=== PATIENT | male | born 1960 | race Two or more races ===

== ENCOUNTER 2024-12-26 10:31 | Emergency (ER) | payer BC, OTHER ==
[~2024-12-26] VITALS: Ht 170.2 cm; Wt 80.7 kg
[2024-12-26 10:49] VITALS: BP 122/73; PULSE 79; RESP 17; TEMP 98.1; O2SAT 98
--- NOTE | 2024-12-26 10:52 | ED.PDOC ---
Musculoskeletal HPI Comments This is a 64-year-old male who comes in with pain and irritation to the right great toe since last Friday. He states he came back from work in his noticed some irritation and redness to his great toe. No drainage from the area. Patient states he is diabetic his blood sugars been about 188. Chief Complaint: Lower Extremity Time Seen by MD: 10:46 Reviewed Notes: Nurses Notes, Medications, Allergies Allergies: Coded Allergies: NO KNOWN ALLERGIES (Unverified , 12/26/24) Information Source: Patient Mode of Arrival: Ambulatory Past Medical History PAST MEDICAL HISTORY: DM Surgical History: Denies all surgeries Social History Smoker: Non-Smoker Alcohol: Denies ETOH Use Drugs: Denies Drug Use Integumetry: reports: wounds (right great toe) All Other Systems: Reviewed and Negative Physical Exam General Appearance: No Apparent Distress, None HEENT: Normal ENT Inspection, PERRL/EOMI, Pharynx Normal Neck: Full Range of Motion, Non-Tender, Normal Inspection Respiratory: Lungs Clear, No Respiratory Distress, Normal Breath Sounds Cardiovascular: Normal Peripheral Pulses Breast Exam: Deferred Gastrointestinal: Non Tender, Soft Genitalia: Deferred Pelvic: Deferred Rectal: Deferred Extremities: Swelling (Right great toe with some induration warmth consistent with infection, no drainage), Tender Neurologic: Alert, Normal Affect, Normal Mood Cerebellar Function: NOT DONE Reflexes: NOT DONE Skin: Other Lymphatic: No Adenopathy Was a procedure done? Was a procedure done?: No Differential Diagnosis EXT Differential Diagnosis: Fracture, Sprain X-Ray, Labs, Meds, VS Vital Signs Date Time Temp Pulse Resp B/P (MAP) Pulse Ox O2 Delivery O2 Flow Rate FiO2 12/26/24 10:32 97.9 83 19 118/70 98 97.9 X-Ray, Labs, Meds, VS Comment Patient seen and examined by me. Patient is a diabetic looks like he has a little bit of a infection to the surrounding tissue of the right great toenail. His blood sugar was 188 at home states it is just not improved since Friday. I will start him on some antibiotics. Incident anti-inflammatories he can follow up with his regular doctor in the next 1-2 days I instructed him on the importance of making sure that he has his nails cut correctly to prevent further infection. Time of 1ST Reevaluation: 10:51 Reevaluation 1ST: Unchanged Patient Education/Counseling: Diagnosis, Treatment, Prognosis, Need For Follow Up Family Education/Counseling: Other, No Family Present Departure 1 Departure Time of Disposition: 10:51 Impression: Primary Impression: Cellulitis Additional Impression: DM (diabetes mellitus) Disposition: 01 HOME / SELF CARE / HOMELESS Condition: Good Additional Instructions: Finish antibiotics as prescribed Make sure when you cut your bowels you have to cut straight across Put lotion on your feet to keep the skin soft so it does not cracked Monitor your blood sugar Discharged With: Self Critical Care Note Critical Care Time?: No Stability Stability form required: FABIÁN Hewitt [employer] Dec 26, 2024 10:52
[2024-12-26] MEDS ORDERED: BACDST PO (10:58)
== END 2024-12-26 11:03 | disposition home or self-care (01) ==
LOC: ER 10:31
DX: L03.90 Cellulitis, unspecified (principal); E11.9 Type 2 diabetes mellitus without complications; Z79.899 Other long term (current) drug therapy
CPT/HCPCS: 82947; 82962